=== PATIENT | male | born 2005 | race Caucasian/White ===

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

== ENCOUNTER 2024-01-13 11:31 | Emergency (ER) | payer BC ==
[2024-01-13] MEDS ORDERED: Dexamethasone 10 MG/ML VIAL ONE (13:10)
[2024-01-13] MEDS ORDERED: Ampicillin/Sulbactam 3 GM VIAL ONE (13:23)
[2024-01-13] MEDS ORDERED: Sodium Chloride 0.9% 100 ML ONE (13:23)
[2024-01-13 14:19] LABS: Hematocrit 46.1 % (42.0-52.0); Hemoglobin 15.6 g/dL (14.0-18.0); Mean Corpuscular HGB CONC 33.8 g/dL (32.0-36.0); Mean Corpuscular Hemoglobin 29.7 pg (25.0-35.0); Mean Corpuscular Volume 87.8 fL (78.0-98.0); Mean Platelet Volume 10.3 fL (7.4-10.4); Platelet Count 201 10x3/uL (130-400); RBC Distribution Width 11.9 % (11.5-14.5); Red Blood Cell (RBC) Count 5.25 mill/uL (4.00-5.20)
[2024-01-13 14:20] LABS: ALT (SGPT) 18 U/L (8-55); AST (SGOT) 18 U/L (5-34); Albumin 3.6 g/dL (3.5-5.0); Alkaline Phosphatase 76 U/L (50-130); Anion Gap 17 mmol/L (10-20); BUN (Urea Nitrogen) 20 mg/dL (8.9-20.6); Bilirubin, Total 0.3 mg/dL (0.2-1.2); Calc. Creatinine Clearance 0 mL/min (70-130); Calcium 9.2 mg/dL (7.8-10.44); Carbon Dioxide 20 mmol/L (22-29); Chloride 105 mmol/L (98-107); Estimated GFR 101; Globulin 3.8 g/dL (2.4-3.5); Glucose 100 mg/dL (70-105); Potassium 4.3 mmol/L (3.5-5.1); Protein, Total 7.4 g/dL (6.0-8.3); Sodium 138 mmol/L (136-145)
[2024-01-13 14:33] LABS: MONO NEGATIVE CONTROL ZONE White (Negative) (White); MONO POSITIVE CONTROL Pink Line (Positive) (PINK/RED); Mononucleosis NEGATIVE (NEGATIVE)
[2024-01-13 14:46] LABS: Band 14 % (5-11); Lymphocytes 19 % (28-48); Monocytes 13 % (0-4); Neutrophil 49 % (31-61); Platelet Adequacy Comment Platelets Normal; Reactive Lymphocytes 6 % (0-10)
== END 2024-01-13 16:41 | disposition home or self-care (01) ==
LOC: ERS 11:31
DX: J02.9 Acute pharyngitis, unspecified (principal); R59.0 Localized enlarged lymph nodes
CPT/HCPCS: 36415; 70491; 80053; 83605; 85025; 86308; 87040; 87081; 87430; 96365; 96375; J0295; J1100; J3490